=== PATIENT | male | born 1940 | race African-American/Black ===

== ENCOUNTER 2020-11-13 18:30 | Observation (INO) | payer MEDICARE, OTHER ==
[~2020-11-13] VITALS: Ht 172.7 cm; Wt 100.2 kg
[2020-11-13] MEDS ORDERED: SODIUM CHLORIDE 0.9% 1000ML 1,000 ML IV STA (18:33)
[2020-11-13 19:41] LABS: BASOPHILS % 0.3 % (0.0-1.0); EOSINOPHILS % 0.6 % (0.0-6.0); HEMATOCRIT 36.5 % (38.2-49.6); HEMOGLOBIN 12.4 g/dL (14.0-18.0); LYMPHOCYTES # (AUTO) 3.4 (1.0-3.2); LYMPHOCYTES % 48.2 % (18.0-39.1); MEAN CORPUSCULAR HEMOGLOBIN 31.6 pg (28-32); MEAN CORPUSCULAR VOLUME 93.1 fL (81-99); MONOCYTES # (AUTO) 0.5 (0.2-0.8); MONOCYTES % 6.6 % (4.4-11.3); NEUTROPHILS # (AUTO) 3.1 (2.1-6.9); PLATELET COUNT 266 x10e3/uL (140-360); RED BLOOD COUNT 3.92 x10e6/uL (4.3-5.7); RED CELL DISTRIBUTION WIDTH 12.5 % (11.7-14.4)
[2020-11-13 19:59] LABS: ALBUMIN 3.8 g/dL (3.5-5.0); ANION GAP 16.4 mmol/L (8-16); CALCIUM 8.3 mg/dL (8.4-10.2); CREATININE, SERUM 1.21 mg/dL (0.72-1.25); POTASSIUM 4.4 mmol/L (3.5-5.1)
[2020-11-13 22:09] LABS: AMPHETAMINES SCREEN,URINE NEGATIVE (NEGATIVE); BENZODIAZEPINES SCREEN,URINE NEGATIVE (NEGATIVE); PHENCYCLIDINE SCREEN,URINE NEGATIVE (NEGATIVE)
[2020-11-13] MEDS ORDERED: ASPIRIN 81 MG CHEW TAB PO ONE ×2 (22:15→23:45)
[2020-11-13 22:37] LABS: CREATINE KINASE MB 2.8 ng/mL (0-5.0)
[2020-11-14] MEDS ORDERED: CALCIUM GLUCONATE 10% INJ 9.3 MEQ in SODIUM CHLORIDE 0.9% 100 ML 100 ML IV ONE (00:15)
[2020-11-14] MEDS ORDERED: GLUCAGON FOR INJ 1 MG VIAL IV ONE (00:15)
[2020-11-14] MEDS ORDERED: CALCIUM GLUCONATE 10% INJ 0.465 MEQ/ML VIAL ONE (00:32)
[2020-11-14] MEDS ORDERED: SODIUM CHLORIDE 0.9% 100 ML ONE (00:33)
[2020-11-14] MEDS: SODIUM CHLORIDE 0.9% 1000ML 1,000 ML IV SCH ×2 (01:01→07:45)
[2020-11-14 01:12] LABS: CREATINE KINASE MB 3.2 ng/mL (0-5.0)
[2020-11-14 03:00] VITALS: BP 165/59
[2020-11-14 03:10] VITALS: BP 165/59
[2020-11-14] MEDS ORDERED: METOPROLOL TAR100 MG PO (04:48)
[2020-11-14] MEDS ORDERED: ASPIRIN325 MG PO (04:48)
[2020-11-14] MEDS ORDERED: HYDRALAZINE HCL10 MG PO (04:48)
[2020-11-14] MEDS ORDERED: LASIX40 MG PO (04:48)
[2020-11-14 07:15] LABS: BASOPHILS % 0.4 % (0.0-1.0); EOSINOPHILS # (AUTO) 0.1 (0.0-0.4); HEMATOCRIT 36.6 % (38.2-49.6); HEMOGLOBIN 12.4 g/dL (14.0-18.0); LYMPHOCYTES % 39.4 % (18.0-39.1); MEAN CORPUSCULAR HGB CONC 33.9 g/dL (31-35); MEAN CORPUSCULAR VOLUME 94.3 fL (81-99); MONOCYTES # (AUTO) 0.6 (0.2-0.8); NEUTROPHILS # (AUTO) 2.4 (2.1-6.9); PLATELET COUNT 239 x10e3/uL (140-360); RED BLOOD COUNT 3.88 x10e6/uL (4.3-5.7); RED CELL DISTRIBUTION WIDTH 12.7 % (11.7-14.4)
[2020-11-14 07:30] VITALS: BP 197/90
[2020-11-14 07:44] LABS: ALANINE AMINOTRANSFERASE 13 IU/L (0-55); ALBUMIN 3.5 g/dL (3.5-5.0); ALKALINE PHOSPHATASE 88 IU/L (40-150); ANION GAP 16.2 mmol/L (8-16); BLOOD UREA NITROGEN 8 mg/dL (7-26); BUN/CREATININE RATIO 8 (6-25); CALCIUM 8.4 mg/dL (8.4-10.2); CARBON DIOXIDE 22 mmol/L (22-29); CHLORIDE 101 mmol/L (98-107); CREATININE, SERUM 1.04 mg/dL (0.72-1.25); EST GLOMERULAR FILTRATION RATE > 60 ML/MIN (60-); GLUCOSE 64 mg/dL (74-118); POTASSIUM 4.2 mmol/L (3.5-5.1); SODIUM 135 mmol/L (136-145)
[2020-11-14 07:51] LABS: CREATINE KINASE MB 3.2 ng/mL (0-5.0)
[2020-11-14] MEDS ORDERED: FUROSEMIDE 40 MG TAB PO SCH (09:00)
[2020-11-14] MEDS ORDERED: ASPIRIN 325 MG TAB PO SCH (09:00)
[2020-11-14] MEDS ORDERED: METOPROLOL TARTRATE 50 MG TAB PO SCH (09:00)
[2020-11-14] MEDS ORDERED: HYDRALAZINE HCL 10 MG TAB PO SCH (10:00)
[2020-11-14 11:29] VITALS: BP 179/94
== END 2020-11-14 13:39 | disposition home or self-care (01) ==
LOC: ER 18:33 → ERHOLD 23:35 → MED/SURG3 11-14 04:18
PROVIDERS: ADMIT Internal Medicine; ATTEND Internal Medicine
DX: F10.120 Alcohol abuse with intoxication, uncomplicated (principal); Y90.8 Blood alcohol level of 240 mg/100 ml or more; I10 Essential (primary) hypertension; E11.9 Type 2 diabetes mellitus without complications; R07.9 Chest pain, unspecified; Z91.81 History of falling; E66.01 Morbid (severe) obesity due to excess calories; E87.1 Hypo-osmolality and hyponatremia; E86.0 Dehydration; Z68.33 Body mass index [BMI] 33.0-33.9, adult; Z20.822 Contact with and (suspected) exposure to COVID-19
CPT/HCPCS: 36415; 70450; 71045; 73522; 80053 ×2; 80307; 80320; 82550 ×2; 82553 ×2; 84484 ×2; 85025 ×2; 93005 ×2; 93306; 99285; G0378 ×2; J0610; J1610; J7030 ×2; J7050; U0002